=== PATIENT | male | born 1955 | race Caucasian/White ===

== ENCOUNTER 2018-03-31 23:42 | Emergency (ER) | payer BC ==
[~2018-03-31] VITALS: Ht 175.3 cm; Wt 102.1 kg
[2018-03-31] MEDS ORDERED: ELIQUIS2.5 MG PO (23:52)
[2018-03-31] MEDS ORDERED: NORVASC5 MG PO (23:52)
[2018-03-31] MEDS ORDERED: ATORVASTATIN CA40 MG PO (23:53)
[2018-03-31] MEDS ORDERED: LOSARTAN POTASS50 MG PO (23:53)
[2018-03-31] MEDS ORDERED: GLUCOPHAGE500 MG PO (23:53)
[2018-04-01] MEDS ORDERED: CLEOCIN HCL300 MG PO (01:17)
== END 2018-04-01 01:30 | disposition home or self-care (01) ==
LOC: ED 23:42
PROC: 0HQNXZZ Repair Left Foot Skin, External Approach (ICD-10-PCS; principal; 2018-03-31)
DX: S91.112A Laceration without foreign body of left great toe without damage to nail, initial encounter (principal); W26.8XXA Contact with other sharp object(s), not elsewhere classified, initial encounter; I48.91 Unspecified atrial fibrillation; I10 Essential (primary) hypertension; E11.9 Type 2 diabetes mellitus without complications; E78.00 Pure hypercholesterolemia, unspecified; Z79.899 Other long term (current) drug therapy; Z79.84 Long term (current) use of oral hypoglycemic drugs
CPT/HCPCS: 12002; 90471; 90715; 96372; 99282; J1670